=== PATIENT | female | born 1955 | race African-American/Black ===

== ENCOUNTER → 2020-05-30 11:42 | Outpatient (CLI) | payer BC, SELFPAY ==
--- NOTE | ~2020-05-30 | US_ITS ---
US thyroid DATE: 05/30/2020 12:05 INDICATION: Thyroid nodule TECHNIQUE: Real-time imaging and Doppler analysis of the thyroid gland COMPARISON: 08/09/2019 thyroid ultrasound examination FINDINGS: The right lobe measures approximately 4.5 x 1.9 x 1.9 cm, with multiple nodules, the larges t measuring up to 7 mm. The left lobe measures 5.7 x 2.4 x 2.4 cm, with multiple nodules, the largest measuring up to 11 mm. At the right side of the isthmus there is an approximately 15 x 9 x 12 mm mildly hypoechoic apparentl y solid lesion. Consider ultrasound-guided biopsy if this has not already been done. IMPRESSION: Little interval change of multiple bilateral thyroid nodules since 08/09/2019, with persi stent largest mass measuring up to 15 x 9 x 12 mm dimension at the right isthmus; ultrasound-guided b iopsy should be considered if not already done. Reviewed, dictated and finalized at [facility]. Reviewed, dictated and finalized at location A. IMPRESSION: Little interval change of multiple bilateral thyroid nodules since 08/09/2019, with persistent largest mass measuring up to 15 x 9 x 12 mm dimensi on at the right isthmus; ultrasound-guided biopsy should be considered if not a lready done.
== END ==
PROVIDERS: Visit Provider Internal Medicine Endocrinology, Diabetes & Metabolism
DX: E04.2 Nontoxic multinodular goiter (principal)
CPT/HCPCS: 76536

== ENCOUNTER → 2020-09-16 10:11 | Outpatient (CLI) | payer BC, SELFPAY ==
--- NOTE | ~2020-09-16 | MM_ITS ---
EXAMINATION: MM screening [facility] w shirin HISTORY: Screening mammogram TECHNIQUE: Craniocaudal and mediolateral oblique 3-D tomosynthesis images were obtained and synthetic 2-D images were generated. CAD analysis was submitted and interpreted. COMPARISON: 09/12/2019, 04/20/2018, 04/17/2017 bilateral digital screening mammogram examinations BREAST PARENCHYMAL COMPOSITION: There are scattered areas of fibroglandular density. FINDINGS: There is no evidence of suspicious mass, calcification, or architectural distortion to sugg est malignancy in either breast. There has been no suspicious interval change. IMPRESSION: 1. No mammographic evidence of malignancy. 2. Recommend routine screening mammography in one year. BI-RADS Category 1: Negative Reviewed, dictated and finalized at location A. ER LAUNDRY ARTICLES
== END ==
PROVIDERS: PCP Internal Medicine; Visit Provider Nurse Practitioner
DX: Z12.31 Encounter for screening mammogram for malignant neoplasm of breast (principal)
CPT/HCPCS: 77063; 77067

== ENCOUNTER → 2022-03-29 11:56 | Outpatient (CLI) | payer OTHER, SELFPAY ==
--- NOTE | ~2022-03-29 | MM_ITS ---
EXAMINATION: MM screening [facility] w shirin HISTORY: Screening TECHNIQUE: Craniocaudal and mediolateral oblique 3-D tomosynthesis images were obtained and synthetic 2-D images were generated. CAD analysis was submitted and interpreted. COMPARISON: Comparison to multiple prior studies sequentially, with oldest reviewed study dated 04/15. BREAST PARENCHYMAL COMPOSITION: There are scattered areas of fibroglandular density. FINDINGS: There is no evidence of suspicious mass, calcification, or architectural distortion to sugg est malignancy in either breast. There has been no suspicious interval change. IMPRESSION: 1. No mammographic evidence of malignancy. 2. Recommend routine screening mammography in one year. BI-RADS Category 1: Negative Reviewed, dictated and finalized at location A.
== END ==
PROVIDERS: PCP Internal Medicine; Visit Provider Internal Medicine
DX: Z12.31 Encounter for screening mammogram for malignant neoplasm of breast (principal)
CPT/HCPCS: 77063; 77067

== ENCOUNTER → 2023-02-16 07:24 | Outpatient (CLI) | payer OTHER, SELFPAY ==
--- NOTE | ~2023-02-16 | US_ITS ---
EXAMINATION: US thyroid DATE: 02/16/2023 08:15 INDICATION: Thyroid nodule TECHNIQUE: Multiple ultrasound images of the thyroid were obtained. COMPARISON: 05/30/2020 FINDINGS: The right thyroid lobe measures 5.3 x 2.1 x 2.2 cm. The left thyroid lobe measures 5.6 x 2.0 x 2.2 c m. 1.4 cm wider than tall solid heterogeneous predominantly solid nodule with lobular margins and wi thout internal echogenic foci at the mid to inferior right thyroid (TI-RADS 4, moderately suspicious , FNA if >=1.5 cm, annual followup is >=1 cm). 1.4 cm wider than tall solid isoechoic nodule with smo oth margins and with minimal amount of peripheral echogenic rim calcification, also TI RADS 4. There are a few additional subcentimeter TI-RADS 4 nodules in both the right and left thyroid lobes. There is normal echotexture, echogenicity and vascular flow throughout the surrounding thyroid gland. IMPRESSION: 1. No significant change in a multinodular goiter with multiple TI RADS 4 nodules, the largest 2 robert uring 1.4 cm for which annual ultrasound follow-up is recommended. Reviewed, dictated and finalized at location A. IMPRESSION: 1. No significant change in a multinodular goiter with multiple TI RADS 4 nodul es, the largest 2 measuring 1.4 cm for which annual ultrasound follow-up is rec ommended.
== END ==
PROVIDERS: PCP Family Medicine; Visit Provider Family Medicine
DX: E04.1 Nontoxic single thyroid nodule (principal)
CPT/HCPCS: 76536

== ENCOUNTER → 2023-03-30 10:08 | Outpatient (CLI) | payer OTHER, SELFPAY ==
--- NOTE | ~2023-03-30 | DEXA_ITS ---
Bone Density Report Name: MELLY TAPIA Age: 67 Sex: Female Ethnicity: Black Date of : 1955 Indication: osteopenia; postmenopausal Referring Provider: LIZ, JESS Study: Bone densitometry was performed. Exam Date: March 30, 2023 Accession number: [id number] Bone Density: Region BMD T-score Z-score Classification AP Spine (L1, L2, L3) 1.083 0.6 1.6 Normal Femoral Neck (Left) 0.642 -1.9 -0.9 Osteopenia Total Hip (Left) 0.790 -1.2 -0.6 Osteopenia Femoral Neck (Right) 0.631 -2.0 -1.0 Osteopenia Total Hip (Right) 0.822 -1.0 -0.4 Normal Total Hip Mean 0.806 -1.1 -0.5 Osteopenia World Health Organization criteria for BMD impression classify patients as: Normal (T-score at or above -1.0), Osteopenia (T-score between -1.0 and -2.5), or Osteoporosis (T-score at or below -2.5). 10-year Fracture Risk(1): Major Osteoporotic Fracture 4.6% Hip Fracture 0.7% Reported Risk Factors: [place] (Black), Neck BMD=0.631, BMI=28.1 (1) FRAX(R) Version 3.08. Fracture probability calculated for an untreated patient. Fracture probability may be lower if the patient has received treatment. Previous Exams: Region Exam Age BMD T-score BMD Change BMD Change Date g/cm2 vs Baseline vs Previous AP Spine(L1, L2, L3) 03/30/2023 67 1.083 0.6 0.086* 0.039* 08/09/2019 63 1.044 0.2 0.048* 0.048* 11/21/2014 59 0.996 -0.2 Total Hip(Left) 03/30/2023 67 0.790 -1.2 -0.047* -0.016 08/09/2019 63 0.806 -1.1 -0.030* -0.030* 11/21/2014 59 0.836 -0.9 Total Hip(Right) 03/30/2023 67 0.822 -1.0 -0.031* -0.007 08/09/2019 63 0.829 -0.9 -0.024 -0.024 11/21/2014 59 0.853 -0.7 *Denotes significance at 95% confidence level, LSC for AP Spine = 0.022 g/cm2, LSC for Total Hip = 0.027 g/cm2 Clinical Information Provided by Patient: Has used the following medications: Vitamin D, Calcium Patient maximum height was 63.0 Menopause Age: 52 No regular weight bearing exercise Does not regularly consume dairy products Drinks caffeinated beverages Onset of menses at age 18 Number of children 2 Impression: The patient has low bone mass, based on the Right Femoral Neck T-score. The patient has an estimated ten-year risk of hip fracture of 0.7% and an estimated ten-year risk of major fracture of 4.6%, based on the WHO FRAX algorithm. No signif
--- NOTE | ~2023-03-30 | MM_ITS ---
EXAMINATION: MM screening [facility] BI w shirin HISTORY: Screening mammogram TECHNIQUE: Craniocaudal and mediolateral oblique 3-D tomosynthesis images were obtained and synthetic 2-D images were generated. CAD analysis was submitted and interpreted. COMPARISON: 03/29/2022, 09/16/2020, 09/12/2019 BREAST PARENCHYMAL COMPOSITION: There are scattered areas of fibroglandular density. FINDINGS: No suspicious mass, calcification, or architectural distortion are identified in either nicolle ast to suggest malignancy. There has been no suspicious interval change. IMPRESSION: 1. No mammographic evidence of malignancy. 2. Recommend routine screening mammography in one year. BI-RADS Category 1: Negative Reviewed, dictated and finalized at location A.
== END ==
PROVIDERS: PCP Family Medicine; Visit Provider Family Medicine
DX: Z12.31 Encounter for screening mammogram for malignant neoplasm of breast (principal); Z78.0 Asymptomatic menopausal state; M85.852 Other specified disorders of bone density and structure, left thigh; M85.851 Other specified disorders of bone density and structure, right thigh
CPT/HCPCS: 77063; 77067; 77080

== ENCOUNTER 2024-04-24 12:52 | Outpatient (CLI) | payer OTHER, SELFPAY ==
--- NOTE | ~2024-04-24 | US_ITS ---
EXAMINATION: US thyroid DATE: 04/24/2024 13:12 INDICATION: Nontoxic single thyroid nodule. TECHNIQUE: Multiple ultrasound images of the thyroid were obtained. COMPARISON: Ultrasound 02/16/2023, 08/09/2019 FINDINGS: The right thyroid lobe measures 5.0 x 2.1 x 2.0 cm. The left thyroid lobe measures 5.7 x 1.9 x 2.2 c m. In the left thyroid lobe, there is a 6 mm solid, very hypoechoic, wider than tall nodule with smo oth margin without echogenic foci (TI-RADS TR4). In the left thyroid lobe, there is a 7 mm solid, hyp oechoic, wider than tall nodule with smooth margin without echogenic foci (TR4). In the left thyroid lobe, there is a 10 mm solid, hypoechoic, wider than tall nodule with ill-defined margin without echo genic foci (TR4), stable from 08/09/19. In the right thyroid lobe, there is a 13 mm mixed cystic and solid, isoechoic, wider than tall nodule with ill-defined margin without echogenic foci (TR2). In the right thyroid lobe, there is a 6 mm solid, hypoechoic, wider than tall nodule with smooth margin wit hout echogenic foci (TR4). In the right thyroid lobe, there is a 1.5 cm solid, hypoechoic, wider than tall nodule with peripheral calcifications and smooth margin (TR4), stable from 08/09/19. IMPRESSION: 1. Multinodular goiter, likely not clinically significant. No follow-up is needed. Reviewed, dictated and finalized at location A. IMPRESSION: 1. Multinodular goiter, likely not clinically significant. No follow-up is need ed.
== END 2024-04-24 12:53 ==
LOC: MICIMG 12:54
PROVIDERS: PCP Family Medicine; Visit Provider Family Medicine
DX: E04.2 Nontoxic multinodular goiter (principal)
CPT/HCPCS: 76536

== ENCOUNTER 2024-05-06 15:32 | Outpatient (CLI) | payer OTHER, SELFPAY ==
--- NOTE | ~2024-05-06 | MM_ITS ---
EXAMINATION: MM screening [facility] w shirin HISTORY: Screening TECHNIQUE: Craniocaudal and mediolateral oblique 3-D tomosynthesis images were obtained and synthetic 2-D images were generated. CAD analysis was submitted and interpreted. COMPARISON: Comparison to multiple prior studies sequentially, with oldest reviewed study dated 04/17. BREAST PARENCHYMAL COMPOSITION: Not dense: There are scattered areas of fibroglandular density. FINDINGS: There is no evidence of suspicious mass, calcification, or architectural distortion to sugg est malignancy in either breast. There has been no suspicious interval change. IMPRESSION: 1. No mammographic evidence of malignancy. 2. Recommend routine screening mammography in one year. BI-RADS Category 1: Negative Reviewed, dictated and finalized at location B.
== END 2024-05-06 15:33 ==
LOC: MICIMG 15:33
PROVIDERS: PCP Family Medicine; Visit Provider Nurse Practitioner
DX: Z12.31 Encounter for screening mammogram for malignant neoplasm of breast (principal)
CPT/HCPCS: 77063; 77067

== ENCOUNTER 2025-05-08 12:16 | Outpatient (CLI) | payer OTHER, SELFPAY ==
--- NOTE | ~2025-05-08 | MM_ITS ---
EXAMINATION: MM screening [facility] BI w shirin HISTORY: Screening TECHNIQUE: Craniocaudal and mediolateral oblique 3-D tomosynthesis images were obtained and synthetic 2-D images were generated. CAD analysis was submitted and interpreted. COMPARISON: Comparison to multiple prior studies sequentially, with oldest reviewed study dated 04/20. BREAST PARENCHYMAL COMPOSITION: Not dense: There are scattered areas of fibroglandular density. FINDINGS: There is no evidence of suspicious mass, calcification, or architectural distortion to sugg est malignancy in either breast. There has been no suspicious interval change. IMPRESSION: 1. No mammographic evidence of malignancy. 2. Recommend routine screening mammography in one year. BI-RADS Category 1: Negative Reviewed, dictated and finalized at location A.
--- NOTE | ~2025-05-08 | DEXA_ITS ---
Bone Density Report Name: MELLY TAPIA Age: 69 Sex: Female Ethnicity: Black Date of : 1955 Indication: osteopenia; Referring Provider: Oscar, Liudmila Study: Bone densitometry was performed. Exam Date: May 08, 2025 Accession number: [id number] Bone Density: Region BMD T-score Z-score Classification AP Spine(L1, L2, L3) 1.061 0.4 1.6 Normal Femoral Neck (Left) 0.619 -2.1 -1.0 Osteopenia Total Hip (Left) 0.792 -1.2 -0.5 Osteopenia Femoral Neck (Right) 0.567 -2.5 -1.3 Osteoporosis Total Hip (Right) 0.799 -1.2 -0.4 Osteopenia Total Hip Mean 0.795 -1.2 -0.5 Osteopenia World Health Organization criteria for BMD impression classify patients as: Normal (T-score at or above -1.0), Osteopenia (T-score between -1.0 and -2.5), or Osteoporosis (T-score at or below -2.5). 10-year Fracture Risk: FRAX not reported because: Some T-score for Spine Total or Hip Total or Femoral Neck at or below -2.5 Previous Exams: -- Region Exam Age BMD T-score BMD Change BMD Change Date g/cm2 vs Baseline vs Previous -- AP Spine (L1-L3) 05/08/2025 69 1.061 0.4 6.5%* -2.0% 03/30/2023 67 1.083 0.6 8.7%* 3.7%* 08/09/2019 63 1.044 0.2 4.8%* 4.8%* 11/21/2014 59 0.996 -0.2 Total Hip(Left) 05/08/2025 69 0.792 -1.2 -5.3%* 0.3% 03/30/2023 67 0.790 -1.2 -5.6%* -2.0% 08/09/2019 63 0.806 -1.1 -3.6%* -3.6%* 11/21/2014 59 0.836 -0.9 Total Hip(Right) 05/08/2025 69 0.799 -1.2 -6.4%* -2.9% 03/30/2023 67 0.822 -1.0 -3.6%* -0.9% 08/09/2019 63 0.829 -0.9 -2.8% -2.8% 11/21/2014 59 0.853 -0.7 -- *Denotes significance at 95% confidence level, LSC for AP Spine = 0.022 g/cm2, LSC for Total Hip = 0.027 g/cm2 Clinical Information Provided by Patient: Has used the following medications: Vitamin D, Calcium Patient maximum height was 63.0 Menopause Age: 52 Drinks caffeinated beverages Onset of menses at age 18 Number of children 2 Impression: The patient has osteoporosis, based on the Right Femoral Neck T-score. No significant bone loss was observed. Discussion: INCREASED RISK OF FRACTURE. BONE DENSITY IS UNDESIRABLY LOW AT ONE OR MORE SKELETAL SITES, CONSISTENT WITH POSTMENOPAUSAL OSTEOPOROSIS. This patient's lowest T-score meets the World Health Organization's (WHO) criteria for osteoporosis at one or more sites (T-score -2.5 or below). In untreated patients, the risk of osteoporotic fracture increases approximately two-fold for each 1.0 SD decrease in T-score. Low bone density is not the only risk factor for fracture; also consider factors such as patient's age, frailty or poor health, risk of falling, risk of injury, previous osteoporotic fracture, family history of osteoporosis, cigarette smoking, low body weight, etc. Not everyone with low bone mineral density has osteoporosis; osteomalacia and other metabolic bone disorders should also be considered. Patients who have osteoporosis should be evaluated for specific diseases and conditions (secondary causes) that may cause or contribute to bone loss. The [place] [employer] (AACE) and National Osteoporosis Foundation (NOF) recommend pharmacologic intervention for all postmenopausal women whose T-score is in this range. The patient should follow a healthful lifestyle (good nutrition with adequate calcium and vitamin D, and appropriate weight-bearing exercise). Follow-Up: Consider a repeat BMD and Vertebral Fracture Assessment (VFA) exam in 2 years or sooner if medically necessary, to reassess this patient's status. Reported by: MAREN on 05/08/2025 1:22:00 PM. Reviewed, dictated and finalized at location A.
== END 2025-05-08 12:17 | disposition home or self-care (01) ==
PROVIDERS: PCP Nurse Practitioner; Visit Provider Nurse Practitioner
DX: Z12.31 Encounter for screening mammogram for malignant neoplasm of breast (principal); Z78.0 Asymptomatic menopausal state; M85.852 Other specified disorders of bone density and structure, left thigh; M81.0 Age-related osteoporosis without current pathological fracture; M85.851 Other specified disorders of bone density and structure, right thigh
CPT/HCPCS: 77063; 77067; 77080